=== PATIENT | male | born 1995 ===

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

== ENCOUNTER 2017-01-01 11:55 | Emergency (ER) | payer SELFPAY ==
[2017-01-01 11:58] VITALS: BMI 26.4
[2017-01-01 12:00] VITALS: RESP 18; TEMP 97.7; O2SAT 100
[2017-01-01] MEDS ORDERED: Bacitracin 500 Units/gm Oint Foilpak UD TOP ONE (12:17)
--- NOTE | 2017-01-01 12:19 | C.PDOC ---
History Of Present Illness 21 yr old male presents to the ER for suture removal from the right thumb placed 8 days ago. Patient denies change in sensation, redness to the area, fever, discharge or pain. Time Seen by Provider: 01/01/17 12:00 Chief Complaint (Nursing): Suture/Staple Removal History Per: Patient History/Exam Limitations: no limitations Onset/Duration Of Symptoms: Days Ago (8) Past Medical History Reviewed: Historical Data, Nursing Documentation, Vital Signs Vital Signs: Last Vital Signs Temp 97.7 F 01/01/17 11:57 Pulse 60 01/01/17 12:43 Resp 18 01/01/17 12:43 BP 110/68 01/01/17 12:43 Pulse Ox 100 01/01/17 12:43 Family History: States: No Known Family Hx - Social History Hx Alcohol Use: No Hx Substance Use: No - Immunization History Hx Tetanus Toxoid Vaccination: Yes Hx Influenza Vaccination: No Hx Pneumococcal Vaccination: No Review Of Systems Except As Marked, All Systems Reviewed And Found Negative. Constitutional: Negative for: Fever, Chills Musculoskeletal: Positive for: Arm Pain Skin: Positive for: Other (Sutures to the right thumb) Neurological: Negative for: Weakness, Numbness Physical Exam - Physical Exam Appears: Non-toxic, No Acute Distress Skin: Warm, Dry, Other (Right Thumb - [address], intact. No dischagre. No redness. No swelling.) Head: Atraumatic, Normacephalic Eye(s): bilateral: Normal Inspection, EOMI Oral Mucosa: Moist Chest: Symmetrical Respiratory: No Accessory Muscle Use Extremity: Normal ROM, Capillary Refill (<2 secs), No Swelling Neurological/Psych: Oriented x3, Normal Speech, Normal Motor, Normal Sensation ED Course And Treatment O2 Sat by Pulse Oximetry: 100 (RA) Pulse Ox Interpretation: Normal Progress Note: 3 sutures are removed. Patient tolerated the procedure well. Dressed the wound with Bacitrain. 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 - Scribe Statement The provider has reviewed the documentation as recorded by the Scribe Debbie Sherwood All medical record entries made by the Scribe were at my direction and personally dictated by me. I have reviewed the chart and agree that the record accurately reflects my personal performance of the history, physical exam, medical decision making, and the department course for this patient. I have also personally directed, reviewed, and agree with the discharge instructions and disposition.
[2017-01-01] MEDS ORDERED: Bacitracin 500 Units/gm Oint Foilpak UD ONE (12:25)
[2017-01-01 12:44] VITALS: BP 110/68; PULSE 60
== END 2017-01-01 12:44 | disposition home or self-care (01) ==
LOC: C.ER 11:55
DX: Z48.02 Encounter for removal of sutures (principal)

== ENCOUNTER 2018-03-08 06:29 | Emergency (ER) | payer OTHER ==
[2018-03-08 06:29] VITALS: BMI 26.4
[2018-03-08] MEDS ORDERED: Sodium Chloride 0.9% 1,000 ML IV ONE (06:43)
--- NOTE | 2018-03-08 06:46 | C.PDOC ---
History Of Present Illness Patient woke up with severe rlq abdominal pain, nausea a 2 episodes of emesis. Sharp, stabbing 7/10 pain. Denies any trauma, diarrhea, constipation Time Seen by Provider: 03/08/18 06:43 Chief Complaint (Nursing): Abdominal Pain History Per: Patient History/Exam Limitations: no limitations Onset/Duration Of Symptoms: Hrs Current Symptoms Are (Timing): Worse Context: Other Severity: Severe Pain Scale Rating Of: 7 Location Of Pain/Discomfort: RLQ Radiation Of Pain To:: None Quality Of Discomfort: Sharp Associated Symptoms: Nausea, Vomiting. denies: Fever, Chills Exacerbating Factors: None Alleviating Factors: None Last Bowel Movement: Today Recent travel outside of the [place]: No Additional History Per: Family Past Medical History Reviewed: Historical Data, Nursing Documentation, Vital Signs Vital Signs: Last Vital Signs Temp 97.6 F 03/08/18 06:35 Pulse 84 03/08/18 06:35 Resp 24 03/08/18 06:35 BP 155/73 H 03/08/18 06:35 Pulse Ox 100 03/08/18 06:35 Family History: States: No Known Family Hx - Social History Hx Alcohol Use: No Hx Substance Use: No - Immunization History Hx Tetanus Toxoid Vaccination: Yes Hx Influenza Vaccination: No Hx Pneumococcal Vaccination: No Review Of Systems Constitutional: Negative for: Fever, Chills Cardiovascular: Negative for: Chest Pain Respiratory: Negative for: Shortness of Breath Gastrointestinal: Positive for: Nausea, Vomiting, Abdominal Pain Genitourinary: Negative for: Hematuria Musculoskeletal: Negative for: Back Pain Skin: Negative for: Rash Neurological: Negative for: Weakness Psych: Negative for: Anxiety Physical Exam - Physical Exam Appears: Non-toxic, In Acute Distress Skin: Warm, Dry Oral Mucosa: Dry Neck: Supple Chest: Symmetrical Cardiovascular: Rhythm Regular Respiratory: No Rales, No Rhonchi, No Wheezing Gastrointestinal/Abdominal: Soft, Tenderness (rlq), No Distention, No Guarding, No Rebound Back: Normal Inspection Extremity: Normal ROM Extremity: Bilateral: Atraumatic Gait: Steady ED Course And Treatment O2 Sat by Pulse Oximetry: 100 Pulse Ox Interpretation: Normal Disposition Counseled Patient/Family Regarding: Studies Performed, Diagnosis - Disposition Disposition Time: 06:43 Condition: GUARDED Forms: [employer] (Latvian) - Clinical Impression Clinical Impression: Abdominal pain Physician Patient Turnover Patient Signed Over To: Shevavesh,Brandie M Handoff Comments: pending labs, ct and dispo
[2018-03-08] MEDS ORDERED: Sodium Chloride 0.9% 1,000 ML ONE (06:47)
[2018-03-08] MEDS ORDERED: Morphine 4 MG/ML VIAL ONE (06:48)
[2018-03-08 06:58] LABS: BASO % 0.5 % (0.0-2.0); EOS # 0.2 K/uL (0.0-0.7); EOS % 2.1 % (0.0-4.0); HEMOGLOBIN 15.6 g/dL (12.0-18.0); LYMPH # 3.9 K/uL (1.0-4.3); LYMPH % 43.7 % (20.0-40.0); MEAN CELL VOLUME 86.9 fL (80.0-94.0); MEAN CORPUSCULAR HEMOGLOBIN 29.9 pg (27.0-31.0); MEAN CORPUSCULAR HGB CONC 34.4 g/dL (33.0-37.0); MEAN PLATELET VOLUME 10.1 fL (7.2-11.7); MONO # 0.8 K/uL (0.0-0.8); MONO % 8.5 % (0.0-10.0); NEUT % 45.2 % (50.0-75.0); RBC 5.22 Mil/uL (4.40-5.90); RED CELL DISTRIBUTION WIDTH 14.4 % (11.5-14.5); WHITE BLOOD COUNT 8.8 K/uL (4.8-10.8)
[2018-03-08 07:05] LABS: INR 1.1; PROTHROMBIN TIME 12.3 SECONDS (9.7-12.2)
[2018-03-08 07:08] LABS: ALB/GLOB RATIO 1.5 (1.0-2.1); ALBUMIN 4.7 g/dL (3.5-5.0); ALT/SGPT 23 U/L (21-72); AST/SGOT 24 U/L (17-59); BLOOD UREA NITROGEN 16 mg/dL (9-20); CALCIUM 9.3 mg/dl (8.6-10.4); GFR NON-AFRICAN AMERICAN > 60; LIPASE 90 U/L (23-300)
[2018-03-08] MEDS ORDERED: Iodixanol 320 MG/ML 100 ML BOTTLE IV ONE (08:48)
[2018-03-08] MEDS ORDERED: Potassium Chloride 20 mEq/15 ml LIQ UD PO ONE (09:50)
--- NOTE | 2018-03-08 09:51 | CT ---
CT abdomen and pelvis History: Right lower quadrant abdominal pain. Comparison: None available. Technique: Multiple contiguous axial images were performed through the abdomen and pelvis with the use of intravenous contrast. Subsequently, sagittal and coronal reformatted images were obtained. This CT exam was performed using one or more of the following dose reduction techniques: Automated exposure control, adjustment of the mA and/or kV according to patient size, and/or use of iterative reconstruction technique. Findings: Atelectasis at the lung bases. No pleural or pericardial effusion. Prominent liver. Periportal edema. Gallbladder wall appears thickened and edematous. Spleen is preserved. Adrenal glands are preserved. Pancreas is preserved. Upper abdominal bowel is preserved. Right kidney: Moderate right hydroureteronephrosis with a 4 millimeter obstructing calculus in the distal right ureter at the ureterovesicular junction. There is delayed enhancement of the right kidney with a few patchy areas of decreased attenuation in the right kidney concerning for possible superimposed acute developing pyelonephritis. Clinical correlation. Left kidney: No calculi or hydronephrosis. The prostate is preserved. Underdistended and or mildly thickened transverse and left hemicolon. Stool-filled distal small bowel loops. Appendix is preserved. Few shotty para-aortic and mesenteric lymph nodes. Degenerative changes in the spine. Impression: 1. Moderate right hydroureteronephrosis with a 4 millimeter obstructing calculus in the distal right ureter at the ureterovesicular junction. There is delayed enhancement of the right kidney with a few patchy areas of decreased attenuation in the right kidney concerning for possible superimposed acute developing pyelonephritis. Clinical correlation. 2. Prominent liver. Periportal edema. Clinical correlation. 3. Gallbladder wall appears thickened and edematous. Clinical correlation. 4. Underdistended and or mildly thickened transverse and left hemicolon. Stool-filled distal small bowel loops. Clinical correlation.
[2018-03-08] MEDS ORDERED: Potassium Chloride 20 mEq/15 ml LIQ UD ONE (10:02)
[2018-03-08 10:48] LABS: URINE BILIRUBIN NEGATIVE (NEGATIVE); URINE BLOOD 3+ (NEGATIVE); URINE CLARITY Hazy (Clear); URINE COLOR Yellow (YELLOW); URINE GLUCOSE (UA) NORMAL (Normal); URINE LEUKOCYTE ESTERASE NEG Leu/uL (Negative); URINE PROTEIN 1+ mg/dL (NEGATIVE); URINE UROBILINOGEN NORMAL mg/dL (0.2-1.0)
[2018-03-08 11:23] VITALS: BP 154/74; PULSE 55; RESP 18; TEMP 98.4; O2SAT 99
== END 2018-03-08 11:30 | disposition home or self-care (01) ==
LOC: C.ER 06:29
DX: R10.31 Right lower quadrant pain (principal)
CPT/HCPCS: 74177; 80053; 81001; 83690; 85025; 85610; 85730; 96361; 96374; 96375; 99285; C9113; J1885; J2270; J2405; J7030; Q9967